=== PATIENT | female | born 1995 | race Caucasian/White ===

== ENCOUNTER 2024-05-25 08:21 | Inpatient (IN) | payer OTHER ==
[~2024-05-25] VITALS: Ht 170.2 cm; Wt 113.4 kg
[2024-05-25 08:55] LABS: COVID AG,FIA SOURCE NASAL SWAB
[2024-05-25 08:56] LABS: BASOPHILS % (AUTO) 0.8 % (0.0-2.0); HEMOGLOBIN 14.5 g/dL (12.0-16.0); LYMPHOCYTES # (AUTO) 1.7 K/uL (1.0-4.8); LYMPHOCYTES % (AUTO) 18.3 % (22.0-44.0); MEAN CORPUSCULAR HEMOGLOBIN 30.3 pg (26.0-34.0); MEAN CORPUSCULAR HGB CONC 32.9 G/dL (31.0-37.0); MEAN CORPUSCULAR VOLUME 92 fL (80-100); MONOCYTES # (AUTO) 0.7 K/uL (0.1-1.0); MONOCYTES % (AUTO) 7.8 % (2.0-9.0); NEUTROPHILS # (AUTO) 6.8 K/uL (1.8-7.7); NEUTROPHILS % (AUTO) 72.1 % (40.0-70.0); PLATELET COUNT (AUTO) 394 K/uL (150-450); RED BLOOD CELL COUNT(AUTO) 4.78 MIL/uL (4.00-5.20); RED CELL DISTRIBUTION WIDTH 14.6 % (11.5-14.5); WHITE BLOOD COUNT (AUTO) 9.5 K/uL (4.5-11.0)
[2024-05-25 09:05] LABS: ANION GAP 10 mmol/L (8-16); CALCIUM, TOTAL 8.7 mg/dL (8.8-10.5); CARBON DIOXIDE 23 mmol/L (22-29); CHLORIDE 105 mmol/L (98-107); CREATININE 0.93 mg/dL (0.60-1.30); GLOMERULAR FILTR. RATE CALC > 60 mL/min (>60); GLUCOSE,RANDOM 97 mg/dL (70-110); POTASSIUM 4.5 mmol/L (3.5-5.1); SODIUM SERUM 138 mmol/L (136-145); UREA NITROGEN, BLOOD 13 mg/dL (7-18)
[2024-05-25 09:16] LABS: SARS-COV2 (COVID) ANTIGEN,FIA Negative (Negative)
[2024-05-25 09:42] LABS: ALCOHOL, BLOOD (SERUM) < 3 mg/dL (0-10)
[2024-05-25 10:25] LABS: ALCOHOL, URINE DRUG SCREEN NEGATIVE (NEGATIVE); AMPHET/METH SCREEN,URINE NEGATIVE (NEGATIVE); BARBITURATE SCREEN, URINE NEGATIVE (NEGATIVE); BENZODIAZEPINES SCREEN,URINE NEGATIVE (NEGATIVE); CANNABINOID SCREEN,URINE POSITIVE (NEGATIVE); COCAINE SCREEN,URINE POSITIVE (NEGATIVE); METHADONE SCREEN, URINE NEGATIVE (NEGATIVE); OPIATE SCREEN,URINE NEGATIVE (NEGATIVE); PHENCYCLIDINE SCREEN,URINE NEGATIVE (NEGATIVE)
[2024-05-25] MEDS: LORazepam 1 MG TABLET PO ONE (13:01)
[2024-05-25] MEDS: LORazepam 2 MG TABLET PO PRN (19:37)
[2024-05-26] MEDS: ZOLPIDEM TARTRATE 10 MG TABLET PO PRN (00:31)
[2024-05-26 04:59] VITALS: BP 140/86; PULSE 79; RESP 18; TEMP 98.2; O2SAT 96
[2024-05-26 08:11] VITALS: BP 129/72; PULSE 75; RESP 17; TEMP 97.6; O2SAT 96
[2024-05-26] MEDS ORDERED: GuaiFENesin/D-METHORPHAN [SUGAR-FREE] 200-20MG/10 ML SYRUP UDCUP PO PRN (08:15)
[2024-05-26] MEDS ORDERED: ALBUTEROL SULFATE HFA 90 MCG/PUFF 8 GM INHALER IH PRN (08:15)
[2024-05-26] MEDS ORDERED: CloNIDine HCL 0.1 MG TABLET PO PRN (08:15)
[2024-05-26] MEDS ORDERED: ACETAMINOPHEN 325 MG TABLET PO PRN (08:15)
[2024-05-26] MEDS ORDERED: MAG HYDROX/ALUMINUM HYD/SIMETH ES 30 ML SUSPENSION UDCUP PO PRN (08:15)
[2024-05-26] MEDS ORDERED: ONDANSETRON HCL 4 MG TABLET PO PRN (08:15)
[2024-05-26] MEDS ORDERED: DOCUSATE SODIUM 100 MG CAPSULE PO PRN (08:15)
[2024-05-26] MEDS ORDERED: MAGNESIUM HYDROXIDE SUSPENSION 30 ML UDCUP PO PRN (08:15)
[2024-05-26] MEDS ORDERED: LOPERAMIDE HCL 2 MG CAPSULE PO PRN (08:15)
[2024-05-26] MEDS ORDERED: PETROLATUM,WHITE 28 GM JELLY TP PRN (08:15)
[2024-05-26] MEDS: NICOTINE 14 MG/24 HOUR PATCH TD PRN (09:22)
[2024-05-26] MEDS: SERTRALINE HCL 50 MG TABLET PO SCH (10:01)
[2024-05-26] MEDS: QUEtiapine FUMARATE 100 MG TABLET PO PRN (16:56)
[2024-05-26 20:30] VITALS: BP 132/75; PULSE 72; RESP 17; TEMP 97.4; O2SAT 97
[2024-05-27 08:11] VITALS: BP 137/87; PULSE 100; RESP 16; TEMP 98.2; O2SAT 96
[2024-05-27 08:49] LABS: CHOL/HDL RATIO 2.9 (3.9-5.7); THYROID STIMULATING HORMONE 1.42 uIU/mL (0.36-3.74)
[2024-05-27 10:48] LABS: HEMOGLOBIN A1C 4.9 % (3.8-5.6)
[2024-05-27 21:14] VITALS: BP 135/88; PULSE 98; RESP 18; TEMP 97.8; O2SAT 97
[2024-05-28 08:14] VITALS: RESP 18
[2024-05-28 20:34] VITALS: BP 141/96; PULSE 94; RESP 18; TEMP 97.5; O2SAT 97
[2024-05-29 08:54] VITALS: BP 147/86; PULSE 100; RESP 17; TEMP 96.8; O2SAT 98
[2024-05-29] MEDS: IBUPROFEN 400 MG TABLET PO PRN (08:59)
[2024-05-29 09:05] LABS: APPEARANCE,URINE CLEAR (CLEAR); BILIRUBIN,URINE NEGATIVE (NEGATIVE); COLOR,URINE LIGHT YELLOW (YELLOW); GLUCOSE, URINE (UA) NEGATIVE (NEGATIVE); KETONES,URINE NEGATIVE (NEGATIVE); LEUKOCYTE ESTERASE ,URINE TRACE (NEGATIVE); NITRATE,URINE NEGATIVE (NEGATIVE); OCCULT BLOOD,URINE SMALL (NEGATIVE); PH,URINE 7.5 (5.0-8.0); PH,URINE DRUG SCREEN 7.5 (5.0-8.0); PROTEIN,URINE NEGATIVE (NEGATIVE); SPECIFIC GRAVITIY, URINE 1.019 (1.003-1.030); UROBILINOGEN,URINE <=1.0 mg/dL (<=1.0)
[2024-05-29 09:25] LABS: ALCOHOL, URINE DRUG SCREEN NEGATIVE (NEGATIVE); AMPHET/METH SCREEN,URINE NEGATIVE (NEGATIVE); BARBITURATE SCREEN, URINE NEGATIVE (NEGATIVE); BENZODIAZEPINES SCREEN,URINE NEGATIVE (NEGATIVE); CANNABINOID SCREEN,URINE POSITIVE (NEGATIVE); COCAINE SCREEN,URINE NEGATIVE (NEGATIVE); METHADONE SCREEN, URINE NEGATIVE (NEGATIVE); OPIATE SCREEN,URINE NEGATIVE (NEGATIVE); PHENCYCLIDINE SCREEN,URINE NEGATIVE (NEGATIVE)
[2024-05-29] MEDS ORDERED: SERT-439 PO (09:43)
[2024-05-29 10:46] LABS: BACTERIA,URINE Few /HPF (None Seen); CALCIUM OXALATE CRYSTALS,UR Rare /LPF (None Seen); RBC,URINE 0-2 /HPF (0-2); SQUAMOUS EPITHELIAL CELL,UR Few /LPF (None Seen)
== END 2024-05-29 13:30 | disposition home or self-care (01) | DRG 885 ==
LOC: EMS 08:25 → B3A 05-26 04:42
PROVIDERS: ADMIT Psychiatry & Neurology Psychiatry; ATTEND Psychiatry & Neurology Psychiatry
PROC: GZHZZZZ Group Psychotherapy (ICD-10-PCS; principal; 2024-05-26)
PROC: GZ51ZZZ Individual Psychotherapy, Behavioral (ICD-10-PCS; 2024-05-26)
DX: F33.2 Major depressive disorder, recurrent severe without psychotic features (principal); R45.851 Suicidal ideations; F12.10 Cannabis abuse, uncomplicated; Z20.822 Contact with and (suspected) exposure to COVID-19; F14.10 Cocaine abuse, uncomplicated; F10.10 Alcohol abuse, uncomplicated; G47.00 Insomnia, unspecified; Z79.899 Other long term (current) drug therapy
CPT/HCPCS: 80048; 80061; 80307; 81001; 83036; 84443; 84703; 85025; 99285; G0480

== ENCOUNTER 2024-09-03 21:20 | Emergency (ER) | payer OTHER ==
[~2024-09-03] VITALS: Ht 170.2 cm; Wt 100.0 kg
[~2024-09-03 21:20] MED LIST: SERT-439 PO
[2024-09-03 21:30] VITALS: TEMP 97.6
[2024-09-03 22:08] LABS: BASOPHILS % (AUTO) 1.1 % (0.0-2.0); EOSINOPHILS % (AUTO) 2.9 % (1.0-6.0); HEMATOCRIT 40.8 % (36-46); HEMOGLOBIN 13.8 g/dL (12.0-16.0); LYMPHOCYTES # (AUTO) 3.4 K/uL (1.0-4.8); LYMPHOCYTES % (AUTO) 35.7 % (22.0-44.0); MEAN CORPUSCULAR HEMOGLOBIN 30.2 pg (26.0-34.0); MEAN CORPUSCULAR HGB CONC 33.9 G/dL (31.0-37.0); MEAN CORPUSCULAR VOLUME 89 fL (80-100); MONOCYTES # (AUTO) 0.5 K/uL (0.1-1.0); MONOCYTES % (AUTO) 4.9 % (2.0-9.0); NEUTROPHILS # (AUTO) 5.3 K/uL (1.8-7.7); NEUTROPHILS % (AUTO) 55.4 % (40.0-70.0); PLATELET COUNT (AUTO) 405 K/uL (150-450); RED BLOOD CELL COUNT(AUTO) 4.57 MIL/uL (4.00-5.20); RED CELL DISTRIBUTION WIDTH 12.5 % (11.5-14.5); WHITE BLOOD COUNT (AUTO) 9.5 K/uL (4.5-11.0)
[2024-09-03 22:23] LABS: ALCOHOL, BLOOD (SERUM) 219 mg/dL (0-10)
[2024-09-03 22:24] LABS: ANION GAP 13 mmol/L (8-16); CALCIUM, TOTAL 8.1 mg/dL (8.8-10.5); CARBON DIOXIDE 22 mmol/L (22-29); CHLORIDE 108 mmol/L (98-107); CREATININE 0.92 mg/dL (0.60-1.30); GLOMERULAR FILTR. RATE CALC > 60 mL/min (>60); GLUCOSE,RANDOM 102 mg/dL (70-110); POTASSIUM 3.7 mmol/L (3.5-5.1); SODIUM SERUM 142 mmol/L (136-145); UREA NITROGEN, BLOOD 14 mg/dL (7-18)
[2024-09-03] MEDS: LORazepam 1 MG TABLET PO ONE (23:25)
[2024-09-03 23:49] LABS: COVID AG,FIA SOURCE NASAL SWAB
[2024-09-04 00:03] LABS: SARS-COV2 (COVID) ANTIGEN,FIA Negative (Negative)
[2024-09-04 05:07] VITALS: BP 123/65; PULSE 79; RESP 16; O2SAT 98
== END 2024-09-04 05:11 | disposition home or self-care (01) ==
LOC: EMS 21:20
DX: R45.851 Suicidal ideations (principal); F41.9 Anxiety disorder, unspecified; F31.9 Bipolar disorder, unspecified; Z20.822 Contact with and (suspected) exposure to COVID-19
CPT/HCPCS: 99283; 87426; 80048; 84703; 85025; 36415; G0480